=== PATIENT | male | born 1950 | race African-American/Black ===

== ENCOUNTER 2017-02-27 10:28 | Emergency (ER) | payer OTHER ==
[~2017-02-27] VITALS: Ht 172.7 cm; Wt 80.0 kg
[~2017-02-27 10:28] MED LIST: AMLO10 PO; BENI20TA25 PO; METF-324 PO; SYNT25TA PO
[2017-02-27 10:29] VITALS: BP 113/75; PULSE 59; RESP 17; TEMP 97.8; O2SAT 100
[2017-02-27] MEDS ORDERED: BENI40TA5 PO (10:53)
[2017-02-27 10:54] VITALS: BP 132/70; PULSE 51; RESP 17; O2SAT 100
[2017-02-27] MEDS ORDERED: GLIP10TA6 PO (10:54)
[2017-02-27] MEDS ORDERED: METO50TA PO (10:54)
[2017-02-27] MEDS ORDERED: AMLO10TA2 PO (10:54)
[2017-02-27] MEDS ORDERED: LEVO75TA3 PO (10:54)
[2017-02-27] MEDS ORDERED: INSULIN HUMAN REGULAR 1,000 UNITS/10 ML VIAL IV PUSH ONE (11:00)
[2017-02-27] MEDS ORDERED: SODIUM CHLOR 0.9% 1000 ML INJ 1,000 ML IV ONE ×2 (11:00)
[2017-02-27 11:13] LABS: BASOPHIL % 0.8 % (0.0-2.0); EOSINOPHIL # 0.1 TH/MM3 (0-0.4); EOSINOPHIL % 1.1 % (0.0-4.0); HEMATOCRIT 38.1 % (39.0-51.0); HEMO FLAGS DIFF FINAL; LYMPH % 31.3 % (9.0-44.0); LYMPHOCYTE # 1.6 TH/MM3 (1.0-4.8); MEAN CELL VOLUME 94.5 FL (80.0-100.0); MEAN CORPUSCULAR HEMOGLOBIN 31.2 PG (27.0-34.0); MEAN CORPUSCULAR HGB CONC 33.1 % (32.0-36.0); MONO % 8.7 % (0.0-8.0); NEUT % 58.1 % (16.0-70.0); PLATELET COUNT 170 TH/MM3 (150-450); RED BLOOD COUNT 4.03 MIL/MM3 (4.50-5.90); RED CELL DISTRIBUTION WIDTH 13.2 % (11.6-17.2); WHITE BLOOD COUNT 5.2 TH/MM3 (4.0-11.0)
[2017-02-27 11:31] LABS: ALT (GPT) 21 U/L (12-78); ANION GAP 8 MEQ/L (5-15); AST (GOT) 15 U/L (15-37); BLOOD UREA NITROGEN 24 MG/DL (7-18); CHLORIDE 103 MEQ/L (98-107); GLOMERULAR FILTRATION RATE 60 ML/MIN (>89); POTASSIUM 4.6 MEQ/L (3.5-5.1); SODIUM (NA) 136 MEQ/L (136-145)
[2017-02-27 11:34] LABS: ALKALINE PHOSPHATASE 82 U/L (45-117); TOTAL BILIRUBIN ADULT 0.4 MG/DL (0.2-1.0)
--- NOTE | 2017-02-27 11:57 | PD ---
HPI Chief Complaint: Diabetic Time Seen by Provider: 10:55 Travel History International Travel<30 days: No Contact w/Intl Traveler<30days: No Traveled to known affect area: No History of Present Illness HPI This is a 67-year-old male who has a history of type 2 diabetes who presents to the emergency department with high blood sugar. He says that he has been increasingly thirsty, and urinating more frequently, constant, moderate severity over the past week. He checked his blood sugar and this morning it was 450 so he came to the emergency department. He takes glipizide and denies any noncompliance with his medication. He has a new appointment with Dr. Ventura in 2 weeks to be established there is a patient. He does admit some dietary indiscretions over the weekend. [facility] Past Medical History Cardiovascular Problems: Yes Diabetes: Yes Patient Takes Glucophage: Yes (02/27/17 0900) Diminished Hearing: No Hypertension: Yes Pancreatitis: Yes Thyroid Disease: Yes (Hypo) Tetanus Vaccination: Unknown ?: Not Past Surgical History Abdominal Surgery: Yes ("stomach" sx) Appendectomy: Yes Social History Alcohol Use: No Tobacco Use: No Substance Use: No Allergies-Medications (Allergen,Severity, Reaction): Coded Allergies: No Known Allergies (Verified , 02/27/17) Reported Meds & Prescriptions Reported Meds & Active Scripts Active Reported Glipizide 10 Mg Tab 10 Mg PO BIDAC Take 30 minutes before a meal Levothyroxine (Levothyroxine Sodium) 75 Mcg Tab 75 Mcg PO DAILY Metoprolol Tartrate 50 Mg Tab 50 Mg PO DAILY Amlodipine (Amlodipine Besylate) 10 Mg Tab 10 Mg PO DAILY Benicar Hct (Olmesartan-Hydrochlorothiazide) 40-12.5 mg Tab 1 Tab PO DAILY Review of Systems Except as stated in HPI: all other systems reviewed are Neg Physical Exam Narrative GENERAL:Well appearing, no acute distress SKIN: Focused skin assessment warm and dry. HEAD: Atraumatic. Normocephalic. EYES: Pupils equal and round. No injection or drainage. ENT: Moist mucous membranes NECK: Trachea midline. CARDIOVASCULAR: Regular rate and rhythm. No murmur appreciated. RESPIRATORY: Clear to auscultation. Breath sounds equal bilaterally. GASTROINTESTINAL: Abdomen soft, non-tender, nondistended. MUSCULOSKELETAL: No obvious deformities. NEUROLOGICAL: Awake and alert. No obvious cranial nerve deficits. Moving all extremities PSYCHIATRIC: Appropriate mood and affect; insight and judgment normal. Data Data Last Documented VS Vital Signs Date Time Temp Pulse Resp B/P Pulse Ox O2 Delivery O2 Flow Rate FiO2 02/27/17 10:54 51 17 132/70 100 02/27/17 10:49 Room Air 02/27/17 10:29 97.8 Orders Complete Blood Count With Diff (02/27/17 10:55) Comprehensive Metabolic Panel (02/27/17 10:55) ^ Insert Iv (02/27/17 10:55) Sodium Chlor 0.9% 1000 Ml Inj (Ns 1000 M (02/27/17 11:00) Sodium Chlor 0.9% 1000 Ml Inj (Ns 1000 M (02/27/17 11:00) Insulin Human Regular Inj (Novolin R Inj (02/27/17 11:00) Labs Laboratory Tests Test 02/27/17 11:01 White Blood Count 5.2 TH/MM3 Red Blood Count 4.03 MIL/MM3 Hemoglobin 12.6 GM/DL Hematocrit 38.1 % Mean Corpuscular Volume 94.5 FL Mean Corpuscular Hemoglobin 31.2 PG Mean Corpuscular Hemoglobin 33.1 % Concent Red Cell Distribution Width 13.2 % Platelet Count 170 TH/MM3 Mean Platelet Volume 9.2 FL Neutrophils (%) (Auto) 58.1 % Lymphocytes (%) (Auto) 31.3 % Monocytes (%) (Auto) 8.7 % Eosinophils (%) (Auto) 1.1 % Basophils (%) (Auto) 0.8 % Neutrophils # (Auto) 3.0 TH/MM3 Lymphocytes # (Auto) 1.6 TH/MM3 Monocytes # (Auto) 0.4 TH/MM3 Eosinophils # (Auto) 0.1 TH/MM3 Basophils # (Auto) 0.0 TH/MM3 CBC Comment DIFF FINAL Differential Comment Sodium Level 136 MEQ/L Potassium Level 4.6 MEQ/L Chloride Level 103 MEQ/L Carbon Dioxide Level 25.0 MEQ/L Anion Gap 8 MEQ/L Blood Urea Nitrogen 24 MG/DL Creatinine 1.43 MG/DL Estimat Glomerular Filtration 60 ML/MIN Rate Random Glucose 346 MG/DL Calcium Level 9.2 MG/DL Total Bilirubin 0.4 MG/DL Aspartate Amino Transf 15 U/L (AST/SGOT) Alanine Aminotransferase 21 U/L (ALT/SGPT) Alkaline Phosphatase 82 U/L Total Protein 7.4 GM/DL Albumin 3.6 GM/DL MDM Medical Decision Making Medical Screen Exam Complete: Yes Emergency Medical Condition: Yes Interpretation(s) Afebrile, no tachycardia, normotensive Mild anemia Renal insufficiency improved from prior Glucose is slightly elevated Differential Diagnosis Hyperglycemia, electrolyte abnormality, dehydration, sepsis Narrative Course This is a 67-year-old male who presents to the emergency department with high blood sugar. He does acknowledge some dietary indiscretion. Labs are obtained which are consistent with isolated hyperglycemia. He was given 2 L of IV hydration and a dose of IV insulin. His blood sugar came down to 180. He is nontoxic appearing and I think is appropriate for outpatient follow-up. I asked him to be more compliant with his diet and to continue taking his medications as prescribed until he follows up with Dr. Ventura. Patient was discharged home. Diagnosis Primary Impression: Hyperglycemia Patient Instructions: General Instructions Additional Instructions: If you develop severe chest pain, shortness of breath, sweating, lightheadedness , dizziness or difficulty breathing return to the emergency department immediately. Follow-up with your primary care physician as scheduled. Med/Other Pt SpecificInfo: No Change to Meds Disposition: 01 DISCHARGE HOME Condition: Stable Corina Thomas MD Feb 27, 2017 11:57
[2017-02-27 12:23] VITALS: BP 122/86
== END 2017-02-27 12:41 | disposition home or self-care (01) ==
LOC: NEPC 10:28
DX: R73.9 Hyperglycemia, unspecified (principal); E11.65 Type 2 diabetes mellitus with hyperglycemia; I10 Essential (primary) hypertension; E03.9 Hypothyroidism, unspecified; Z79.4 Long term (current) use of insulin; Z87.19 Personal history of other diseases of the digestive system
CPT/HCPCS: 80053; 85025; 96361; 96374; 99284; J1815; J7030